=== PATIENT | male | born 1975 | race Caucasian/White ===

== ENCOUNTER 2019-04-02 08:50 | Emergency (ER) | payer BC ==
[2019-04-02 09:06] VITALS: BP 132/82; PULSE 107
--- NOTE | 2019-04-02 09:32 | EDM.PDOC ---
ED [facility] GENERAL MEDICAL PROBLEM - General Chief Complaint: Upper Extremity Injury/Pain Stated Complaint: SHOULDER INJURY Time Seen by Provider: 04/02/19 09:30 Source of Information: Reports: Patient History Limitations: Reports: No Limitations - History of Present Illness INITIAL COMMENTS - FREE TEXT/NARRATIVE: Patient is a 43-year-old male with a past medical history of obesity complaining of right shoulder pain status post fall this morning. Patient states he slipped on ice and fell backwards onto his shoulder. Patient complains of mild pain in the posterior shoulder. Patient took aspirin with mild relief. Patient denies any numbness tingling or weakness of the shoulder. Patient states he otherwise feels well and has no other injuries from the fall. Patient did not hit his head or have any loss of consciousness. Patient states he had a similar shoulder injury about 3 months ago which is been intermittently aggravating him. In addition to that documented in the HPI above, the additional ROS was obtained : Constitutional: Denies fevers or chills Eyes: Denies vision changes ENMT: Denies sore throat CV: Denies chest pain Resp: Denies SOB GI: Denies vomiting or diarrhea : Denies painful urination MSK: Denies recent trauma Skin: Denies new rashes Neuro: Denies new numbness or tingling or weakness Endocrine: Denies unexpected weight loss Heme: Denies bleeding disorders I have reviewed the triage vital signs Const: Well nourished, well developed, appears stated age Eyes: PERRL, no conjunctival injection HENT: NCAT, Neck supple without meningismus CV: RRR, Warm, well-perfused extremities RESP: CTAB, Unlabored respiratory effort GI: soft, non-tender, non-distended, no masses MSK: No deformities of the shoulder. Patient demonstrates full range of motion of the shoulder both actively and passively. Patient has 5 out of 5 strength of the major muscles of the shoulder. Rotator cuff muscles are intact. No bruising or ecchymosis of the shoulder. Skin: Warm, dry. No rashes Neuro: Alert, powerhouse attendant II-XII grossly intact. Sensation and motor function of extremities grossly intact. Psych: Appropriate mood and affect Assessment and plan Patient is a 43-year-old male with minor shoulder injury status post fall. Patient does not have any evidence of a fracture or dislocation. Patient given instructions for pain management. Patient will be discharged home with outpatient follow-up. Was addressed and answered. Patient agrees with plan Right Shoulder Pain Score (Numeric/FACES): 8 - Related Data Allergies Allergy/AdvReac Type Severity Reaction Status Date / Time lisinopril Allergy Swelling Verified 04/02/19 09:01 Home Meds: Home Meds Simvastatin [Zocor] mg PO DAILY 05/19/16 [History] Past Medical History Cardiovascular History: Reports: High Cholesterol, Hypertension Psychiatric History: Reports: Other (See Below) Other Psychiatric History: sleep problem Endocrine/Metabolic History: Reports: Diabetes, Type II - Infectious Disease History Infectious Disease History: Reports: None - Past Surgical History GI Surgical History: Reports: Hernia, Abdominal, Hernia Repair/Other Other GI Surgeries/Procedures: gastric bypass Social & Family History - Family History Family Medical History: Noncontributory - Tobacco Use Smoking Status *Q: Current Every Day Smoker Years of Tobacco use: 20 Packs/Tins Daily: 1 - Caffeine Use Caffeine Use: Reports: Soda - Recreational Drug Use Recreational Drug Use: No Review of Systems - Review of Systems Review Of Systems: See Below ED EXAM, GENERAL - Physical Exam Exam: See Below Course - Vital Signs Last Recorded V/S: Last Vital Signs Temp 37.0 C 04/02/19 09:02 Pulse 107 H 04/02/19 09:02 Resp 20 04/02/19 09:02 BP 132/82 04/02/19 09:02 Pulse Ox 96 04/02/19 09:02 Departure - Departure Time of Disposition: 09:32 Disposition: Home, Self-Care 01 Clinical Impression: Sprain of shoulder - Discharge Information Instructions: Shoulder Pain, [id number] Referrals: Yajaira Sampson RETURNED CASE INSPECTOR [Primary Care Provider] - Forms: ED Department Discharge Additional Instructions: The following information is given to patients seen in the emergency department who are being discharged to home. This information is to outline your options for follow-up care. We provide all patients seen in our emergency department with a follow-up referral. The need for follow-up, as well as the timing and circumstances, are variable depending upon the specifics of your emergency department visit. If you don't have a primary care physician on staff, we will provide you with a referral. We always advise you to contact your personal physician following an emergency department visit to inform them of the circumstance of the visit and for follow-up with them and/or the need for any referrals to a consulting specialist. The emergency department will also refer you to a specialist when appropriate. This referral assures that you have the opportunity for follow-up care with a specialist. All of these measure are taken in an effort to provide you with optimal care, which includes your follow-up. Under all circumstances we always encourage you to contact your private physician who remains a resource for coordinating your care. When calling for follow-up care, please make the office aware that this follow-up is from your recent emergency room visit. If for any reason you are refused follow-up, please contact the [facility] Emergency Department at and asked to speak to the emergency department charge nurse. Please take anti-inflammatory medications for pain as needed. If pain persist for several weeks, discussed with your primary care physician regarding possible physical therapy. Sepsis Event Note - Evaluation Sepsis Screening Result: No Definite Risk - Focused Exam Vital Signs: Vital Signs Temp Pulse Resp BP Pulse Ox 04/02/19 09:02 37.0 C 107 H 20 132/82 96 Date Exam was Performed: 04/02/19 Time Exam was Performed: 09:30
== END 2019-04-02 09:43 | disposition home or self-care (01) ==
LOC: MW.ED 08:50
DX: S43.401A Unspecified sprain of right shoulder joint, initial encounter (principal); I10 Essential (primary) hypertension; E11.9 Type 2 diabetes mellitus without complications; E78.00 Pure hypercholesterolemia, unspecified; F17.210 Nicotine dependence, cigarettes, uncomplicated; Z79.899 Other long term (current) drug therapy; Z88.8 Allergy status to other drugs, medicaments and biological substances; W00.0XXA Fall on same level due to ice and snow, initial encounter
CPT/HCPCS: 99283

== ENCOUNTER 2021-11-25 20:23 | Emergency (ER) | payer BC ==
[2021-11-25 20:41] VITALS: BP 164/113; PULSE 110
== END 2021-11-25 20:45 | disposition left against medical advice (07) ==
LOC: MW.ED 20:23
DX: T63.441A Toxic effect of venom of bees, accidental (unintentional), initial encounter (principal); E78.00 Pure hypercholesterolemia, unspecified; I10 Essential (primary) hypertension; E11.9 Type 2 diabetes mellitus without complications; Z91.030 Bee allergy status; Z88.8 Allergy status to other drugs, medicaments and biological substances; Z79.899 Other long term (current) drug therapy
CPT/HCPCS: 99283

== ENCOUNTER 2024-06-15 12:21 | Emergency (ER) | payer BC ==
[2024-06-15 14:58] VITALS: BP 181/106; PULSE 105
== END 2024-06-15 14:59 | disposition home or self-care (01) ==
LOC: MW.ED 12:21
DX: J18.9 Pneumonia, unspecified organism (principal); I10 Essential (primary) hypertension; E78.00 Pure hypercholesterolemia, unspecified; E11.9 Type 2 diabetes mellitus without complications; Z75.8 Other problems related to medical facilities and other health care; Z91.030 Bee allergy status; Z88.8 Allergy status to other drugs, medicaments and biological substances; Z79.899 Other long term (current) drug therapy
CPT/HCPCS: 71046; 71046-26; 87428-QW; 99283